=== PATIENT | male | born 1985 | race Caucasian/White ===

== ENCOUNTER 2016-09-18 21:03 | Emergency (ER) | payer OTHER ==
[~2016-09-18] VITALS: Ht 185.4 cm; Wt 83.9 kg
--- NOTE | 2016-09-18 22:47 | ED UPPER/LOWER EXTREMITY COMPL ---
History of Present Illness General Chief Complaint: Lower Extremity Problems Stated Complaint: NO FEELING IN MY LEGS X 5DAYS Source: patient Exam Limitations: no limitations Vital Signs & Intake/Output Vital Signs & Intake/Output Vital Signs Date Time Temp Pulse Resp B/P B/P Pulse O2 O2 Flow FiO2 Mean Ox Delivery Rate 09/18 2345 97.2 74 18 135/69 96 09/18 2141 98.9 87 18 140/76 98 Room Air ED Intake and Output 09/19 0000 09/18 1200 Intake Total Output Total Balance Patient 185 lb Weight Weight Reported by Patient Measurement Method Allergies Coded Allergies: No Known Allergies (09/18/16) Triage Note: PT TO TRIAGE WITH C/O LOWER BACK PAIN RADIATING TO BILATERAL LE, BILAT LE NUMBNESS AND SLIGHT TINGLING xWEEK. PT WAS SEEN AT [facility] 3DAYS AGO AND WAS DIAGNOSED WITH NEUROPATHY. SYMPTOMS GETTING WORSE, PT REPORTS DIFFICULTY AMBULATING. DENIES ANY OTHER COMPLAINTS. NEUROS INTACT. VSS. HX OF MANDA PARKINSON WHITE SYNDROM, DIABETES. Triage Nurses Notes Reviewed? yes HPI: Patient presents for evaluation of loss of sensation of the legs that began gradually 5 days ago. Patient states that he is also having back pain that began about 3-4 days ago. He was seen at the [facility] and diagnosed with worsening of his diabetic neuropathy but states that this is a different kind of sensation that he is experiencing and doubts that it is neuropathy. The feeling has been constant and is described as moderate to severe and nothing seems to make it better. In regards to the back pain isn't upper lumbar/lower thoracic pain described as a "weird sensation" the gets worse with movement. Other than "a little trouble" initiating urination the patient denies any acute incontinence or retention. He is a smoker and he uses marijuana but only rarely uses alcohol. Past History Travel History Traveled to [place] past 21 day No Medical History Any Pertinent Medical History? see below for history Cardiovascular: WPW SYNDROME Endocrine: diabetes Surgical History Surgical History: non-contributory Psychosocial History What is your primary language Finnish Tobacco Use: Current Daily Use Daily Tobacco Use Amount/Type: => 5 Cigarettes daily ETOH Use: occasional use Illicit Drug Use: marijuana Family History Hx Contributory? No Review of Systems Review of Systems Constitutional: Reports: no symptoms. EENTM: Reports: no symptoms. Respiratory: Reports: no symptoms. Cardiovascular: Reports: no symptoms. Gastrointestinal/Abdominal: Reports: no symptoms. Genitourinary: Reports: no symptoms. Musculoskeletal: Reports: no symptoms. Skin: Reports: no symptoms. Neurological/Psychological: Reports: see HPI. Hematologic/Endocrine: Reports: no symptoms. Immunological: Reports: no symptoms. All Other Systems: Reviewed and Negative Physical Exam Physical Exam General Appearance: see below Comments: Gen.: Well-nourished, well-developed, no acute respiratory distress. Head: Normocephalic, atraumatic. Eyes: Normal inspection bilaterally Ears: Normal inspection bilaterally Nose: Normal inspection, nasal cannula in place Throat/mouth : Moist mucosa Neck: Supple, full range of motion, no goiter Heart: Regular rate and rhythm Lungs: Quiet respirations Back: Normal range of motion, tenderness of the midthoracic spine without associated ecchymoses soft tissue swelling or erythema. Mild tenderness over the right paraspinal lumbar musculature without additional findings. Extremities: Lower extremities: Normal distal pulses, 1+ deep tendon reflexes bilaterally (chronic per patient), sensation is intact to light touch throughout the lower extremities and saddle distribution although the patient states it doesn't "feel normal"[as compared to sensation in the upper extremity], no straight leg raise sign. Neurologic: Cranial nerves grossly intact, speech is clear Skin: warm and dry Psychiatric: Calm, cooperative, no apparent delusions or hallucinations Progress Differential Diagnosis: diabetic neuropathy, spinal cord disease, radiculopathy Plan of Care: Orders Procedure Date/time Status [facility] SED RATE 09/19 0007 Complete CBC WITHOUT DIFFERENTIAL 09/18 2254 Complete BASIC METABOLIC PANEL 09/18 2254 Complete Laboratory Tests 09/19/16 0019: ESR [facility] 1 09/18/16 2330: Anion Gap 9, Estimated GFR > 60, BUN/Creatinine Ratio 20.0, Glucose 268 H, Calcium 9.2, CBC w Diff NO MAN DIFF REQ, RBC 5.39, MCV 92.3, MCH 31.7 H, RDW 12.3, MPV 7.6, Gran % 65.7, Lymphocytes % 25.6, Monocytes % 7.2, Eosinophils % 1.2, Basophils % 0.3, Absolute Granulocytes 5.2, Absolute Lymphocytes 2.0, Absolute Monocytes 0.6, Absolute Eosinophils 0.1, Absolute Basophils 0, PUBS MCHC 34.3 Diagnostic Imaging: Discussed w/RAD: CT Scan. Radiology Impression: PATIENT: ALEKS OTERO PRESENT AGE: 31 PATIENT ACCOUNT NO: [id number] : 85 LOCATION: [facility] ORDERING PHYSICIAN: ROBERT COLLIER MD SERVICE DATE: 09/18/16 EXAM TYPE: CAT - CT LUMB SPINE W IV CONTRAST; CT THOR SPINE W IV CONTRAST EXAMINATION: CONTRAST ENHANCED CT OF THE THORACIC AND LUMBAR SPINE CLINICAL INFORMATION: Bilateral lower extremity weakness and decreased sensation with upper back tenderness. COMPARISON: None available. TECHNIQUE: CT acquisition of the thoracolumbar spine is obtained following the administration of 95 cc of Optiray 320 intravenous contrast without complication. Multiplanar reformats were acquired and utilized for image interpretation. FINDINGS: Spinal alignment is normal. Chronic appearing left-sided L5 pars defect. There are no acute fractures. The vertebral body heights are maintained. The disc spaces are preserved. No suspicious intraosseous lesions are identified. Please note that the central canal and the spinal cord or not diagnostically assessed on this exam. If symptoms persist, consider MRI for more definitive assessment. The visualized soft tissues are unremarkable. No high-grade bony foraminal stenosis is appreciated. Assessment for disc herniations is limited on this CT study. IMPRESSION: - No acute findings. Please note that the central canal and the spinal cord or not diagnostically assessed on this exam. If symptoms persist, consider MRI for more definitive assessment. - Chronic appearing left-sided L5 pars defect. DICTATED BY: ROBERT GARSIA MD DATE/TIME DICTATED:09/19/1655 OPTICAL FABRICATION TECHNICIAN: CORTES DATE/TIME TRANSCRIBED:09/19/1655 CONFIDENTIAL, DO NOT COPY WITHOUT APPROPRIATE AUTHORIZATION. <Electronically signed in Other Vendor System> SIGNED BY: ROBERT GARSIA MD 09/19/16 0109 Comments: 09/19/2016 3:14:56 AM I have updated Aleks on his test results. He is concerned about his ability to go home but has declined hospitalization. He has tried ibuprofen for worsening bilateral knee pain, independent of his diabetic neuropathy, without much improvement. I will prescribe an anti-inflammatory for him and he will follow up with the [facility] practice, not being very pleased with his current medical doctor. Departure Departure Disposition: HOME OR SELF CARE Condition: Stable Clinical Impression Primary Impression: Bilateral leg paresthesia Secondary Impressions: Bilateral knee pain Qualifiers: Chronicity: chronic Qualified Codes: M25.561 - Pain in right knee; M25.562 - Pain in left knee; G89.29 - Other chronic pain Referrals: UNKNOWN (PCP/Family) Additional Instructions: Follow-up with your diabetes physician and the neurologist listed as soon as possible for reevaluation (or follow-up with the [facility] practice instead). Maintain a good control of your diabetes with diet and medications. Return if any concerns or sudden worsening. Please note that there might be incidental findings in your evaluation that are unrelated to the current emergency department visit. Please notify your primary care doctor about this emergency department visit in order to obtain and review all of the testing performed so that these incidental findings can be monitored as needed. If you had an x-ray performed, please understand that some fractures may not be seen on the initial set of x-rays. If your symptoms persist you might need a repeat set of x-rays to check for such a fracture. If you had a laceration evaluated, please understand that foreign bodies such as glass or wood may not be visible to the naked eye or on plain x-rays. If the wound becomes red, swollen, increasingly more painful or if there is any drainage from the wound, please have it reevaluated by a physician for the possibility of a retained foreign body. Thank you for choosing the [facility] for your care. It was a pleasure to serve you today. Robert Collier M.D. [facility] Departure Forms: Customer Survey General Discharge Information Prescriptions: Current Visit Scripts Diclofenac Potassium 1 TAB PO TID PRN PAIN #30 TAB
[2016-09-18 23:48] LABS: ABSOLUTE BASOPHIL COUNT 0 /CUMM (0.0-0.2); ABSOLUTE EOSINOPHIL COUNT 0.1 /CUMM (0.0-0.7); ABSOLUTE GRANULOCYTE CT 5.2 /CUMM (1.4-6.5); ABSOLUTE MONOCYTE COUNT 0.6 /CUMM (0.10-0.60); BASOPHIL % 0.3 % (0.0-2.0); EOSINOPHIL % 1.2 % (0-5); GRANULOCYTE % 65.7 % (42.2-75.2); HEMATOCRIT 49.8 % (42-52); MEAN CORPUSCULAR HGB 31.7 PG (27.0-31.0); MEAN CORPUSCULAR HGB CONC 34.3 G/DL (33.0-37.0); MEAN CORPUSCULAR VOLUME 92.3 FL (80.0-94.0); MEAN PLATELET VOLUME 7.6 FL (7.4-10.4); PLATELET COUNT 205 /CUMM (130-400); RBC DISTRIBUTION WIDTH 12.3 % (11.5-14.5); RED BLOOD CELL CT 5.39 /CUMM (4.70-6.10); WHITE BLOOD CELL COUNT 7.9 /CUMM (4.8-10.8)
--- NOTE | 2016-09-19 01:09 | CT SCAN REPORT ---
EXAMINATION: CONTRAST ENHANCED CT OF THE THORACIC AND LUMBAR SPINE CLINICAL INFORMATION: Bilateral lower extremity weakness and decreased sensation with upper back tenderness. COMPARISON: None available. TECHNIQUE: CT acquisition of the thoracolumbar spine is obtained following the administration of 95 cc of Optiray 320 intravenous contrast without complication. Multiplanar reformats were acquired and utilized for image interpretation. FINDINGS: Spinal alignment is normal. Chronic appearing left-sided L5 pars defect. There are no acute fractures. The vertebral body heights are maintained. The disc spaces are preserved. No suspicious intraosseous lesions are identified. Please note that the central canal and the spinal cord or not diagnostically assessed on this exam. If symptoms persist, consider MRI for more definitive assessment. The visualized soft tissues are unremarkable. No high-grade bony foraminal stenosis is appreciated. Assessment for disc herniations is limited on this CT study. IMPRESSION: - No acute findings. Please note that the central canal and the spinal cord or not diagnostically assessed on this exam. If symptoms persist, consider MRI for more definitive assessment. - Chronic appearing left-sided L5 pars defect.
[2016-09-19] MEDS ORDERED: DICLOFENAC POTA50 M1 PO (03:17)
[2016-09-19 03:28] VITALS: BP 143/85
== END 2016-09-19 03:34 ==
LOC: ERH 21:03
PROVIDERS: Emergency Medicine
DX: R20.9 Unspecified disturbances of skin sensation (principal); M25.561 Pain in right knee; M25.562 Pain in left knee